=== PATIENT | female | born 1970 | race American Indian/Alaskan Native ===

== ENCOUNTER 2017-03-11 10:12 | Outpatient (CLI) | payer OTHER ==
--- NOTE | 2017-03-11 11:45 | Mammography Report ---
BILATERAL MAMMOGRAM: FINDINGS: The breasts are almost entirely fat (<25% glandular). No mass, distortion, suspicious calcification, or skin change is seen. No significant change is identified when compared to prior exams dating back to 2015. CAD was utilized. IMPRESSION: Negative mammogram. There is no mammographic evidence of malignancy. RECOMMENDATION: Follow-up per ACS guidelines. BI-RADS CATEGORY: 1 = Negative ACR BI-RADS MAMMOGRAPHIC CODES: 0 = Needs additional imaging evaluation; 1 = Negative; 2 = Benign; 3 = Probably benign; 4 = Suspicious; 5 = Malignant; 6 = Known biopsy-proven malignancy COMMENT: 1. Dense breast tissue, i.e., adenosis, fibrocystic changes, etc., may obscure an underlying neoplasm. 2. Approximately 10% of cancers are not detected with mammography. 3. A negative mammography report should not delay biopsy if a clinically suspicious mass is present. COMMENT: Patient follow-up letters are generated in [employer].
== END 2017-03-11 10:13 | disposition home or self-care (01) ==
LOC: SPVWC 10:12
PROVIDERS: ATTEND Obstetrics & Gynecology
DX: Z12.31 Encounter for screening mammogram for malignant neoplasm of breast (principal); I10 Essential (primary) hypertension; E11.9 Type 2 diabetes mellitus without complications
CPT/HCPCS: 77067; G0202

== ENCOUNTER 2017-09-12 06:38 | Outpatient (CLI) | payer OTHER ==
--- NOTE | 2017-09-12 10:58 | Cat Scan Report ---
CT ABDOMEN PELVIS WITHOUT CONTRAST: HISTORY: Right lower quadrant abdominal pain, history of colon cancer. COMPARISON: none. TECHNIQUE: Helical CT in 1.25mm intervals without IV contrast. Sagittal and coronal reconstructions. FINDINGS: Lung bases: Normal. Liver: Normal. Biliary system: Normal. Pancreas: Normal. Spleen: Normal. Kidneys/ureters/bladder: There is 3 punctate calyceal stones in the mid to inferior left kidney. A solitary punctate calyceal stone is identified in the mid right kidney. No ureteral stones or hydronephrosis. The bladder is unremarkable. Adrenal glands: Normal. Aorta: Normal. Intestines: There is oral contrast throughout the colon. No obvious recurrent colon mass, inflammation or abnormal dilatation. The small bowel loops and stomach are within normal limits. Appendix: Normal. Pelvic viscera: A 1 cm calcified uterine fibroid is noted in the right lateral wall uterus. The ovaries are unremarkable. Ascites: None. Adenopathy: None. Musculoskeletal: Normal. Previous ventral wall hernia changes appear intact. No recurrent hernia is identified. IMPRESSION: No acute process in the abdomen or pelvis. No clear explanation for right lower quadrant abdominal pain. Punctate bilateral renal calyceal stones. Surgical changes as described. No evidence for metastatic disease on noncontrast CT.
== END 2017-09-12 06:39 | disposition home or self-care (01) ==
LOC: CT 06:38
PROVIDERS: ATTEND Family Medicine
DX: N20.0 Calculus of kidney (principal); D25.9 Leiomyoma of uterus, unspecified; Z85.9 Personal history of malignant neoplasm, unspecified
CPT/HCPCS: 74176

== ENCOUNTER 2018-03-13 08:56 | Outpatient (CLI) | payer OTHER ==
--- NOTE | 2018-03-13 15:16 | Mammography Report ---
BILATERAL DIGITAL SCREENING MAMMOGRAM with CAD: 03/13/18 08:56:00 CLINICAL: Routine screening. COMPARISON: 03/11/17 FINDINGS: There are bilateral scattered areas of fibroglandular density.No mass, architectural distortion or suspicious calcifications. IMPRESSION: No mammographic evidence of malignancy. BI-RADS CATEGORY: 1 -- Negative RECOMMENDATION: Routine mammographic screening in one year. COMMENT: Patient follow-up letters are generated by our [employer] application.
== END 2018-03-13 08:57 | disposition home or self-care (01) ==
LOC: SPVWC 08:56
PROVIDERS: ATTEND Obstetrics & Gynecology
DX: Z12.31 Encounter for screening mammogram for malignant neoplasm of breast (principal); I10 Essential (primary) hypertension; Z88.8 Allergy status to other drugs, medicaments and biological substances; Z88.1 Allergy status to other antibiotic agents
CPT/HCPCS: 77067

== ENCOUNTER 2019-07-13 09:19 | Outpatient (CLI) | payer OTHER ==
--- NOTE | 2019-07-14 09:56 | Mammography Report ---
DIGITAL SCREENING MAMMOGRAM WITH CAD, 07/13/2019 INDICATION: Routine screening mammography. TECHNIQUE: Digital bilateral 2D mammography was obtained in the craniocaudal and mediolateral obliq ue projections. This examination was interpreted with the benefit of Computer-Aided Detection analysi s. COMPARISON: 03/13/2018 FINDINGS: Breast Density: There are scattered areas of fibroglandular density. A left outer asymmetry on the CC view requires additional imaging. No architectural distortion or jazlyn picious calcifications of the left breast. A left upper inner biopsy clip. There is no evidence of do minant mass, suspicious calcifications or architectural distortion in the right breast. IMPRESSION: Left asymmetry requiring additional imaging. Recommend recall for left ML and spot magnif ication CC views and left breast ultrasound if needed. Follow up recommendation: Special View: Mag Category 0: Incomplete. Needs additional imaging evaluation and/or prior mammograms for comparison. A "normal" or negative report should not discourage follow up or biopsy of a clinically significant f inding. A written summary of these findings will be mailed to the patient. The patient will be entered into a mammography reporting system which will generate a reminder letter for the patient's next appointmen t at the appropriate interval. The [employer] recommends yearly mammograms starting at age 40 and continuing as l alcides as a woman is in good health. Breast MRI is recommended for women with an approximate 20-25% or greater lifetime risk of breast cancer, including women with a strong family history of breast or ova derik cancer or who have been treated for Hodgkin's disease. Signer Name: Magdaleno Aguilar MD Signed: 07/14/2019 9:51 AM Workstation Name: [id number]
== END 2019-07-13 09:20 | disposition home or self-care (01) ==
LOC: SPVWC 09:19
PROVIDERS: ATTEND Obstetrics & Gynecology
DX: Z12.31 Encounter for screening mammogram for malignant neoplasm of breast (principal)
CPT/HCPCS: 77067

== ENCOUNTER 2019-08-20 13:49 | Outpatient (CLI) | payer OTHER ==
--- NOTE | 2019-08-20 15:00 | Mammography Report ---
DIGITAL LEFT DIAGNOSTIC MAMMOGRAM WITH CAD, 08/20/2019 INDICATION: ABNORMAL MAMMOGRAM. Recalled for asymmetry. TECHNIQUE: Digital left mammographic imaging was performed. Magnification views were obtained. This examination was interpreted with the benefit of Computer-aided Detection analysis. COMPARISON: 07/13/2019 Breast Density: There are scattered areas of fibroglandular density. FINDINGS: ML and spot magnification CC views were performed and are negative. IMPRESSION: No mammographic evidence of malignancy. Follow up recommendation: Routine BI-RADS Category 1: Negative. A "normal" or negative report should not discourage follow up or biopsy of a clinically significant f inding. A written summary of these findings will be mailed to the patient. The patient will be entered into a mammography reporting system which will generate a reminder letter for the patient's next appointmen t at the appropriate interval. According to the [employer], yearly mammograms are recommended starting at age 40 and continuing as long as a woman is in good health. Breast MRI is recommended for women with an karen roximately 20-25% or greater lifetime risk of breast cancer, including women with a strong family his tory of breast or ovarian cancer and women who have been treated for Hodgkin's disease. Signer Name: Magdaleno Aguilar MD Signed: 08/20/2019 2:55 PM Workstation Name: [id number]
== END 2019-08-20 13:50 | disposition home or self-care (01) ==
LOC: SPVWC 13:49
PROVIDERS: ATTEND Obstetrics & Gynecology
DX: R92.8 Other abnormal and inconclusive findings on diagnostic imaging of breast (principal); R92.2 Inconclusive mammogram